=== PATIENT | male | born 1985 | race Caucasian/White ===

== ENCOUNTER 2023-03-27 13:29 | Emergency (ER) | payer MEDICAID ==
[~2023-03-27] VITALS: Ht 170.2 cm; Wt 106.1 kg
[2023-03-27 13:46] VITALS: BP 113/67; PULSE 80; RESP 18; TEMP 97.5; O2SAT 100
[2023-03-27] MEDS ORDERED: TETRACAINE 1% 2 ML AMP INJ ONE (15:20)
[2023-03-27] MEDS ORDERED: FLUORESCEIN OPTH STRIP 1 MG OP ONE (15:20)
[2023-03-27] MEDS ORDERED: IBUP-2213 PO (16:17)
[2023-03-27] MEDS ORDERED: CIPR2.5D RIGHT EYE (16:17)
[2023-03-27 17:21] VITALS: BP 113/67; PULSE 80; RESP 18; TEMP 97.5; O2SAT 100
== END 2023-03-27 17:22 | disposition home or self-care (01) ==
LOC: MED 13:29
DX: T15.01XA Foreign body in cornea, right eye, initial encounter (principal); Z79.899 Other long term (current) drug therapy
CPT/HCPCS: 99283